=== PATIENT | male | born 1955 | race Caucasian/White ===

== ENCOUNTER 2019-07-17 14:10 | Outpatient (CLI) | payer BC, SELFPAY ==
--- NOTE | ~2019-07-17 | XR_ITS ---
EXAMINATION: XR shoulder RT min 2V DATE: 07/17/2019 14:44 INDICATION: Right shoulder pain. TECHNIQUE: 4 views of right shoulder were obtained. COMPARISON: None. FINDINGS: Bone alignment is normal. No fracture. There is mild osteoarthritis of glenohumeral joint a nd moderate osteoarthritis of acromioclavicular joint. IMPRESSION: 1. Polyarticular osteoarthritis. Reviewed, dictated and finalized at location A. RMATION TECHNOLOGY TEACHER
--- NOTE | ~2019-07-17 | XR_ITS ---
EXAMINATION: XR shoulder LT min 2V DATE: 07/17/2019 14:44 INDICATION: Left shoulder pain. TECHNIQUE: 4 views of left shoulder were obtained. COMPARISON: None. FINDINGS: Bone alignment is normal. No fracture. There is mild osteoarthritis of glenohumeral joint a nd acromioclavicular joint. IMPRESSION: 1. Mild polyarticular osteoarthritis. Reviewed, dictated and finalized at location A. ET ROW MARKER
[2019-07-17 14:21] LABS: Basophils Absolute Auto 0.04 K/mm3 (0.00-0.10); Basophils Percent Auto 0.4 % (0.0-1.0); Eosinophils Absolute Auto 0.12 K/mm3 (0.02-0.50); Eosinophils Percent Auto 1.1 % (1.0-6.0); Hematocrit 38.6 % (40.0-54.0); Hemoglobin 13.4 g/dL (14.0-18.0); Immature Granulocyte Absolute 0.04 K/mm3 (0.00-0.00); Immature Granulocyte Percent A 0.4 % (0.0-0.0); Lymphocytes Absolute Auto 1.32 K/mm3 (1.10-4.50); Lymphocytes Percent Auto 12.2 % (18.0-42.0); Mean Corpuscular HGB Conc 34.7 g/dL (32.0-36.0); Mean Corpuscular Hemoglobin 32.1 pg (27.0-31.0); Mean Corpuscular Volume 92.3 fL (78.0-102.0); Mean Platelet Volume 9.8 fl (8.7-11.0); Monocytes Absolute Auto 0.65 K/mm3 (0.10-0.90); Neutrophils Absolute Auto 8.6 K/mm3 (1.7-7.2); Neutrophils Percent Auto 79.9 % (50.0-70.0); Platelet Count Result 237 K/mm3 (150-420); Red Blood Count 4.18 M/mm3 (4.70-6.10); White Blood Count 10.8 K/mm3 (4.8-10.8)
[2019-07-17 15:29] LABS: Rheumatoid Factor Screen Negative (Negative)
[2019-07-17 15:35] LABS: Alanine Aminotransferase 49 U/L (16-63); Albumin Level 3.9 g/dL (3.4-5.0); Alkaline Phosphatase 131 U/L (46-116); Aspartate Amino Transferase 26 U/L (15-37); Bilirubin,Total 0.6 mg/dL (0.00-1.00); Blood Urea Nitrogen 15 mg/dL (7-18); Carbon Dioxide 27 mmol/L (21-32); Chloride 106 mmol/L (98-108); Estimated Glomerular Filt Rate 59; Glucose 85 mg/dL (70-99); Osmolality Calculated 297 mOsm/kg (285-295); Sodium 144 mmol/L (136-145); Uric Acid 5.8 mg/dL (3.5-7.2)
[2019-07-17 15:37] LABS: CRP < 0.2 mg/dL (0.0-0.9)
== END 2019-07-17 14:11 | disposition home or self-care (01) ==
LOC: CHSLAB 14:11
PROVIDERS: PCP Internal Medicine; Visit Provider Nurse Practitioner Family
DX: M25.519 Pain in unspecified shoulder (principal); M25.50 Pain in unspecified joint
CPT/HCPCS: 36415; 73030; 80053; 84550; 85025; 86038; 86140; 86430

== ENCOUNTER 2019-07-31 14:32 | Outpatient (CLI) | payer BC, SELFPAY ==
--- NOTE | ~2019-07-31 | XR_ITS ---
EXAMINATION:XR_CERV2-3V_CR DATE: 07/31/2019 14:57 INDICATION: Bilateral shoulder pain, no known injury TECHNIQUE: AP, lateral, lateral swimmers and odontoid views of the cervical spine are provided. COMPARISON: None FINDINGS: There is straightening of the cervical spine which can be positional or due to muscular spa sm. The odontoid is intact. No fracture is identified. The vertebral body heights are normal. There i s mild loss of intervertebral disc space height at C5-6 and C6-7. There is mild uncovertebral joint o steoarthritis at C5-6 and C6-7. Prevertebral soft tissues are normal. Calcified atherosclerosis is no haydee. IMPRESSION: 1. Mild cervical spondylosis without acute findings. Reviewed, dictated and finalized at location A. T CREW TECHNICIAN
== END 2019-07-31 14:33 | disposition home or self-care (01) ==
LOC: CHSIMG 14:34
PROVIDERS: PCP Internal Medicine; Visit Provider Nurse Practitioner Family
DX: M25.512 Pain in left shoulder (principal); M25.511 Pain in right shoulder
CPT/HCPCS: 72040

== ENCOUNTER 2019-08-06 07:45 | Outpatient (RCR) | payer BC, SELFPAY ==
--- NOTE | 2019-08-06 08:32 | PTOPEVAL ---
Thank you for referring this patient to [facility]. Please review, sign, date and return this plan of care [facility]. I agree with and certify that the following plan of care is medically necessary. Referring Physician Date Admitting Provider: Attending Provider: Chandler Diego MD Referring Provider: *PT Outpatient Evaluation Start: 08/06/19 07:48 Freq: Status: Active Protocol: Document 08/06/19 07:55 CARLITOS (Rec: 08/06/19 08:22 CARLITOS [id number]) Therapy Assessment Status Assessment Status Assessment Status Evaluation Outpatient Past Medical History Neurological History Hx Neurological Disorders No Significant History Cardiovascular History Hx Atrial Fibrillation Yes Musculoskeletal History Hx Musculoskeletal Disorders No Significant History Hematological History Hx Hematological Disorders No Significant History Endocrine History Hx Endocrine Disorders No Significant History HEENT History Hx HEENT Disorders No Significant History Integumentary History Hx Skin Disorders No Significant History Reproductive History Hx Reproductive Disorders No Significant History Psychosocial History Hx Psychiatric Disorders No Significant History Pain History History of Any Previous or Ongoing No Significant History Instance of Pain Anesthesia History Hx Anesthesia Reactions No Significant History Other History Hx Cancer Yes: esophaseal Evaluation Information Problem Diagnosis left frozen shoulder Onset 06/07/19 Subjective Information Pt. reports that about 2 Query Text:As Reported By Patient/ months ago he woke up in the Family morning and noted right shoulder pain and stiffness. He reports no improvement in regards to pain and mobility in the right shoulder. He reports that he has had injection yesterday, and notes slight improvement. He reports that he has not undergone MRI study. He did undergo xray which revealed some arthritis. He reports that his goal for therapy is to regain ney ROM. Prior Level of Function Activity Level (Last 3 Months) Hand Dominance Right Activity of Daily Living Ability Independent Indoor/Home Mobility Independent Community Mobility Independent Stairs Ability Independent Functional Cognition (Planning, Shopping Independent ,
--- NOTE | 2019-09-07 16:22 | PTOPEVAL ---
Thank you for referring Anil Samaniego to [facility]. Please review, sign, date and return this plan of care [facility]. I agree with and certify that the following plan of care is medically necessary. Referring Physician Date Admitting Provider: Attending Provider: Chandler Diego MD Referring Provider: *PT Outpatient Evaluation Start: 08/06/19 07:48 Freq: Status: Active Protocol: Document 09/04/19 10:00 CARLITOS (Rec: 09/07/19 16:21 ENRIQUE [id number]) Therapy Assessment Status Assessment Status Assessment Status Re-evaluation Outpatient Past Medical History Neurological History Hx Neurological Disorders No Significant History Cardiovascular History Hx Atrial Fibrillation Yes Musculoskeletal History Hx Musculoskeletal Disorders No Significant History Hematological History Hx Hematological Disorders No Significant History Endocrine History Hx Endocrine Disorders No Significant History HEENT History Hx HEENT Disorders No Significant History Integumentary History Hx Skin Disorders No Significant History Reproductive History Hx Reproductive Disorders No Significant History Psychosocial History Hx Psychiatric Disorders No Significant History Pain History History of Any Previous or Ongoing No Significant History Instance of Pain Anesthesia History Hx Anesthesia Reactions No Significant History Other History Hx Cancer Yes: esophaseal Evaluation Information Problem Diagnosis left frozen shoulder Onset 06/07/19 Subjective Information Pt. reports that he is still Query Text:As Reported By Patient/ limited due to pain. He Family states that despite the pain is movement has signficantly improved. He reports that he still would like to improve strength and mobility, and continue to decrease pain. Pain Assessment Pain Scale Pain Scale Used Numeric (1 - 10) Self Report Pain Assessment Left Shoulder(s) Reported Pain Level 5 Pain Score Pain Score 5: Self Report Upper Extremity Range of Motion General Upper Extremity Range of Motion Gross Upper Extremity Range of Motion left shoulder flexion AROM 120 Comments degrees, left shoulder ER AROM 55 degrees, left shoulder IR AROM 45 degrees Upper Extremity Muscle Strength Testing General Upper Extremity Strength Gross Upper Extremity Strength Comments left shoulder flexion 4/5, left shoulder ER 4/5, left shoulder IR 5/5 PT Clinical Summary Clinical Summary Protocol
== END 2019-09-24 10:52 | disposition home or self-care (01) ==
LOC: CHSPT 07:45
PROVIDERS: PCP Internal Medicine; Visit Provider Internal Medicine
DX: M75.02 Adhesive capsulitis of left shoulder (principal)
CPT/HCPCS: 97014; 97110; 97140; 97161; G0283

== ENCOUNTER 2019-08-26 09:23 | Outpatient (CLI) | payer BC, SELFPAY ==
[2019-08-26 09:34] LABS: Basophils Absolute Auto 0.03 K/mm3 (0.00-0.10); Basophils Percent Auto 0.4 % (0.0-1.0); Eosinophils Percent Auto 1.4 % (1.0-6.0); Hematocrit 41.2 % (40.0-54.0); Hemoglobin 14.3 g/dL (14.0-18.0); Immature Granulocyte Absolute 0.02 K/mm3 (0.00-0.00); Immature Granulocyte Percent A 0.3 % (0.0-0.0); Lymphocytes Absolute Auto 1.02 K/mm3 (1.10-4.50); Lymphocytes Percent Auto 14.7 % (18.0-42.0); Mean Corpuscular HGB Conc 34.7 g/dL (32.0-36.0); Mean Corpuscular Hemoglobin 32.5 pg (27.0-31.0); Mean Corpuscular Volume 93.6 fL (78.0-102.0); Mean Platelet Volume 10.2 fl (8.7-11.0); Monocytes Absolute Auto 0.21 K/mm3 (0.10-0.90); Neutrophils Absolute Auto 5.6 K/mm3 (1.7-7.2); Neutrophils Percent Auto 80.2 % (50.0-70.0); Platelet Count Result 172 K/mm3 (150-420); Red Cell Distribution Width 12.7 % (11.6-14.4); White Blood Count 6.9 K/mm3 (4.8-10.8)
[2019-08-26 11:43] LABS: Alanine Aminotransferase 53 U/L (16-63); Albumin Level 3.9 g/dL (3.4-5.0); Alkaline Phosphatase 101 U/L (46-116); Anion Gap 11.6 mmol/L (7-16); Aspartate Amino Transferase 30 U/L (15-37); Bilirubin,Total 0.7 mg/dL (0.00-1.00); Blood Urea Nitrogen 21 mg/dL (7-18); Calcium 9.2 mg/dL (8.5-10.1); Carbon Dioxide 29 mmol/L (21-32); Chloride 106 mmol/L (98-108); Estimated Glomerular Filt Rate > 60; Glucose 170 mg/dL (70-99); Lactate Dehydrogenase 110 U/L (85-227); Osmolality Calculated 303 mOsm/kg (285-295); Potassium 3.6 mmol/L (3.5-5.1); Sodium 143 mmol/L (136-145); Total Protein 6.8 g/dL (6.4-8.2)
== END 2019-08-26 09:24 | disposition home or self-care (01) ==
LOC: CHSLAB 09:26
PROVIDERS: PCP Internal Medicine; Visit Provider Internal Medicine
DX: C15.5 Malignant neoplasm of lower third of esophagus (principal)
CPT/HCPCS: 36415; 80053; 83615; 85025

== ENCOUNTER 2019-10-23 12:03 | Outpatient (CLI) | payer BC, SELFPAY ==
[2019-10-23 12:18] LABS: Basophils Absolute Auto 0.04 K/mm3 (0.00-0.10); Basophils Percent Auto 0.5 % (0.0-1.0); Eosinophils Absolute Auto 0.05 K/mm3 (0.02-0.50); Eosinophils Percent Auto 0.6 % (1.0-6.0); Hematocrit 43.6 % (40.0-54.0); Hemoglobin 15.4 g/dL (14.0-18.0); Immature Granulocyte Absolute 0.03 K/mm3 (0.00-0.00); Immature Granulocyte Percent A 0.4 % (0.0-0.0); Lymphocytes Absolute Auto 0.96 K/mm3 (1.10-4.50); Lymphocytes Percent Auto 12.1 % (18.0-42.0); Mean Corpuscular HGB Conc 35.3 g/dL (32.0-36.0); Mean Corpuscular Hemoglobin 31.4 pg (27.0-31.0); Mean Platelet Volume 10.3 fl (8.7-11.0); Monocytes Absolute Auto 0.48 K/mm3 (0.10-0.90); Neutrophils Absolute Auto 6.4 K/mm3 (1.7-7.2); Neutrophils Percent Auto 80.4 % (50.0-70.0); Platelet Count Result 185 K/mm3 (150-420); Red Cell Distribution Width 12.1 % (11.6-14.4); White Blood Count 7.9 K/mm3 (4.8-10.8)
[2019-10-23 13:35] LABS: Alanine Aminotransferase 52 U/L (16-63); Albumin Level 4.2 g/dL (3.4-5.0); Alkaline Phosphatase 86 U/L (46-116); Anion Gap 17.1 mmol/L (7-16); Aspartate Amino Transferase 32 U/L (15-37); Bilirubin,Total 0.7 mg/dL (0.00-1.00); Blood Urea Nitrogen 22 mg/dL (7-18); Calcium 9.7 mg/dL (8.5-10.1); Carbon Dioxide 25 mmol/L (21-32); Chloride 106 mmol/L (98-108); Estimated Glomerular Filt Rate 54; Glucose 119 mg/dL (70-99); Lactate Dehydrogenase 161 U/L (85-227); Osmolality Calculated 302 mOsm/kg (285-295); Potassium 4.1 mmol/L (3.5-5.1); Sodium 144 mmol/L (136-145); Total Protein 6.9 g/dL (6.4-8.2)
== END 2019-10-23 12:04 | disposition home or self-care (01) ==
LOC: CHSLAB 12:05
PROVIDERS: PCP Internal Medicine; Visit Provider Internal Medicine
DX: C15.5 Malignant neoplasm of lower third of esophagus (principal)
CPT/HCPCS: 36415; 80053; 83615; 85025

== ENCOUNTER 2021-10-09 13:52 | Outpatient (CLI) | payer MEDICARE, SELFPAY ==
--- NOTE | 2021-10-09 14:20 | ECG_ITS ---
Measurements Intervals [place] Rate: 52 P: 61 DC: 168 QRS: 51 QRSD: 100 T: 35 QT: 467 QTc: 436 Interpretive Statements SINUS BRADYCARDIA POSSIBLE LEFT ATRIAL ENLARGEMENT INCOMPLETE RIGHT BUNDLE BRANCH BLOCK T WAVE ABNORMALITY IN ANTERIOR LEADS- CONSIDER ISCHEMIA ABNORMAL ECG Electronically Signed On 10-09-2021 14:29:50 CDT by Basim Cowart D.O.
[2021-10-09 14:50] LABS: Add Urine Microscopic? YES; Appearance Urine Clear (Clear); Bilirubin Urine Negative (Negative); Blood Urine Negative (Negative); Color Urine Light Yellow (Yellow); Glucose Urine UA Negative (Negative); Ketones Urine Negative (Negative); Leukocyte Esterase Ur 1+ (Negative); Nitrate Urine Negative (Negative); Protein Urine Negative (Negative); Urobilinogen Urine 0.2 mg/dL (0.2-1.0)
[2021-10-09 15:25] LABS: Bacteria Urine Trace /hpf; RBC Urine None seen /hpf (0-2); Squamous Epithelial Cell Urine Rare /hpf (Few); WBC Urine 0-3 /hpf (0-3)
[2021-10-09 15:32] LABS: Alanine Aminotransferase 25 U/L (16-63); Albumin Level 3.3 g/dL (3.4-5.0); Alkaline Phosphatase 74 U/L (46-116); Anion Gap 9 mmol/L (8-16); Aspartate Amino Transferase 23 U/L (15-37); Bilirubin,Total 0.7 mg/dL (0.00-1.00); Blood Urea Nitrogen 9 mg/dL (7-18); Calcium 8.8 mg/dL (8.5-10.1); Carbon Dioxide 25 mmol/L (21-32); Chloride 105 mmol/L (98-108); Estimated Glomerular Filt Rate > 60; Glucose 98 mg/dL (70-99); NT Pro B Type Natriuretic Pept 369 pg/mL (0-125); Osmolality Calculated 286 mOsm/kg (285-295); Sodium 139 mmol/L (136-145); Thyroid Stimulating Hormone 2.09 uIU/mL (0.36-3.74); Total Protein 7.1 g/dL (6.4-8.2)
[2021-10-09 16:09] LABS: Basophils Absolute Auto 0.03 K/mm3 (0.00-0.10); Basophils Percent Auto 0.5 % (0.0-1.0); Eosinophils Absolute Auto 0.15 K/mm3 (0.02-0.50); Eosinophils Percent Auto 2.4 % (1.0-6.0); Hematocrit 45.3 % (40.0-54.0); Hemoglobin 15.1 g/dL (14.0-18.0); Immature Granulocyte Absolute 0.01 K/mm3 (0.00-0.00); Immature Granulocyte Percent A 0.2 % (0.0-0.0); Lymphocytes Absolute Auto 1.21 K/mm3 (1.10-4.50); Lymphocytes Percent Auto 19.3 % (18.0-42.0); Mean Corpuscular HGB Conc 33.3 g/dL (32.0-36.0); Mean Corpuscular Volume 99.1 fL (78.0-102.0); Mean Platelet Volume 11.6 fl (8.7-11.0); Monocytes Absolute Auto 0.41 K/mm3 (0.10-0.90); Monocytes Percent Auto 6.5 % (2.0-11.0); Neutrophils Absolute Auto 4.5 K/mm3 (1.7-7.2); Neutrophils Percent Auto 71.1 % (50.0-70.0); Platelet Count Result 106 K/mm3 (150-420); Red Blood Count 4.57 M/mm3 (4.70-6.10); Red Cell Distribution Width 13.6 % (11.6-14.4); White Blood Count 6.3 K/mm3 (4.8-10.8)
== END 2021-10-09 13:53 | disposition home or self-care (01) ==
LOC: CHSLAB 13:57
PROVIDERS: PCP Internal Medicine; Visit Provider Internal Medicine
DX: R42 Dizziness and giddiness (principal); C15.9 Malignant neoplasm of esophagus, unspecified; R06.00 Dyspnea, unspecified
CPT/HCPCS: 36415; 80053; 81001; 83880; 84443; 85025; 93005

== ENCOUNTER 2021-10-17 09:37 | Outpatient (CLI) | payer MEDICARE, SELFPAY ==
--- NOTE | ~2021-10-17 | MR_ITS ---
EXAMINATION: MR brain/brain stem wo con DATE: 10/17/2021 10:45 INDICATION: Dizziness. TECHNIQUE: Magnetic resonance imaging (MRI) of the brain and brainstem was performed without intraven ous contrast. COMPARISON: Head CT 07/12/2018 FINDINGS: There are scattered areas of nonspecific increased T2-weighted signal intensity in the cere bral white matter, which is within normal limits for the patient's age. There is no intracranial hemo rrhage, acute infarction, or abnormal intracranial mass lesion. The ventricles are normal in size. Th ere is mild mucosal thickening in the paranasal sinuses. There are small bilateral mastoid effusions. There is a dystrophic calcification of right ocular globe. IMPRESSION: 1. Normal aging brain. Reviewed, dictated and finalized at location B. IMPRESSION: 1. Normal aging brain.
== END 2021-10-17 09:38 | disposition home or self-care (01) ==
LOC: CHSIMG 09:40
PROVIDERS: PCP Internal Medicine; Visit Provider Internal Medicine
DX: R42 Dizziness and giddiness (principal); C15.9 Malignant neoplasm of esophagus, unspecified; R06.00 Dyspnea, unspecified
CPT/HCPCS: 70551

== ENCOUNTER 2021-10-20 12:15 | Outpatient (CLI) | payer MEDICARE, SELFPAY ==
--- NOTE | 2021-10-20 01:00 | ECHO_ITS ---
Patient Info Name: Anil Samaniego Age: 66 years : 1955 Gender: Male Ht: 73 in Wt: 222 lbs BSA: 2.30 m2 HR: 91 bpm BP: 136 / 87 mmHg Heart Rhythm: Sinus Rhythm Technical Quality: Fair Exam Date: 10/20/2021 12:15 PM Exam Location: [facility] Patient Status: Outpatient Admit Date: 10/20/2021 Staff Ordering Physician: Chandler Diego MD Cloth Winder: Alley Jurado RDCS Attending Provider: Chandler Diego MD Exam Type: CA echo doppler color flow Study Info Indications - ABN EKG/ELEVATED BNP, OSTHOSTIC HYPERTENSION Complete two-dimensional, color flow and Doppler transthoracic echocardiogram is performed. Summary 1. Complete two-dimensional, color flow and Doppler transthoracic echocardiogram is performed. 2. Left ventricular chamber dimension is normal. 3. Left ventricular systolic function is normal, estimated at 60-65%. 4. The left ventricular diastolic function is grade I diastolic dysfunction. 5. E/e' 10 is mildly elevated. 6. There is mild aortic valve sclerosis. 7. No pulmonary hypertension, estimated pulmonary arterial systolic pressure is 29 mmHg. Left Ventricle E/e' 10 is mildly elevated. Left ventricular chamber dimension is normal. Left ventricular systolic function is normal, estimated at 60-65%. The left ventricular diastolic function is grade I diastolic dysfunction. Right Ventricle Right ventricular chamber dimension is normal. Right ventricular systolic function is normal. Left Atria Left atrial chamber dimension is normal. Right Atria Right atrial chamber dimension is normal. Aortic Valve The aortic valve is trileaflet. There is mild aortic valve sclerosis. There is no aortic valve stenosis. There is no aortic valve regurgitation. Pulmonic Valve There is no pulmonic regurgitation. Mitral Valve There is no mitral valve stenosis. There is no mitral valve regurgitation. Tricuspid Valve There is no tricuspid valve regurgitation. No pulmonary hypertension, estimated pulmonary arterial systolic pressure is 29 mmHg. Pericardium/Pleural There is no pericardial effusion. Inferior Vena Cava Normal inferior vena cava with >50% collapse upon inspiration consistent with normal right atrial pressure, 5 mmHg. Aorta The aortic root size at the sinus of Valsalva is normal. Left Ventricular Outflow Tract Name Value Normal LVOT 2D LVOT Diameter 2.0 cm LVOT Doppler LVOT Peak Velocity 118 cm/s LVOT Peak Gradient 6 mmHg LVOT Mean Gradient 3 mmHg LVOT VTI 19 cm LVOT VTI/AV VTI Ratio 0.7 LVOT Stroke Volume 60 ml Mitral Valve Name Value Normal MV Doppler MV Decel [place] 261 cm/s2 MV PHT
== END 2021-10-20 12:16 | disposition home or self-care (01) ==
LOC: CHSIMG 12:17
PROVIDERS: PCP Internal Medicine; Visit Provider Internal Medicine
DX: R94.31 Abnormal electrocardiogram [ECG] [EKG] (principal); I95.1 Orthostatic hypotension; R79.89 Other specified abnormal findings of blood chemistry
CPT/HCPCS: 93306

== ENCOUNTER 2021-10-24 14:10 | Emergency (ER) | payer MEDICARE, SELFPAY ==
--- NOTE | ~2021-10-24 | CT_ITS ---
EXAMINATION: CTA chest PE protocol DATE: 10/24/2021 15:35 INDICATION: Chest elevated D-Dimer. Central chest pain with SOB TECHNIQUE: Computed tomography angiography (CTA) of the chest was performed with 100 mL Omnipaque-350 intravenous contrast timed to evaluate the pulmonary arteries. Coronal maximum intensity projection 3D-reconstructions were created by the technologist. The dose-length product (DLP) was 805.35 mGy-cm. Automated exposure control and iterative reconstruction technique were employed. COMPARISON: 04/28/2019. FINDINGS: Study quality: Adequate. Pulmonary arteries: No pulmonary emboli detected. Thoracic aorta: Mild calcification. No significant dilation. Lung parenchyma and airways: Bibasilar atelectasis/scar. 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 Thoracic inlet, axillae and chest wall: Unremarkable. Mediastinum: Esophagectomy with gastric pull-through. No lymphadenopathy or mass.. Heart and pericardium: Small volume pericardial effusion. Coronary artery calcifications: Moderate. Pleura: Unremarkable. Upper abdomen: No significant finding. Bones: No acute osseous finding. IMPRESSION: No CT evidence of acute pulmonary embolus. Small-volume pericardial effusion. Reviewed, dictated and finalized at location K.
--- NOTE | ~2021-10-24 | XR_ITS ---
EXAMINATION: XR chest 2V DATE: 10/24/2021 14:43 INDICATION: 5 days of chest pain TECHNIQUE: frontal and lateral views of the chest were obtained. COMPARISON: Chest radiograph dated 07/11/[address] dated 07/13/2018 FINDINGS: Mild streaky bibasilar opacities. No subtle blunting at the costophrenic angles and posterior sulci s uggesting very small bilateral pleural effusions. No pneumothorax. The cardiomediastinal silhouette i s normal. Mild thoracic spondylosis. IMPRESSION: 1. Mild streaky bibasilar opacities and favor atelectasis over mild pulmonary edema or pneumonia. 2. Possible very small bilateral pleural effusions. Reviewed, dictated and finalized at location B. IMPRESSION: 1. Mild streaky bibasilar opacities and favor atelectasis over mild pulmonary e rich or pneumonia. 2. Possible very small bilateral pleural effusions.
--- NOTE | 2021-10-24 14:18 | ECG_ITS ---
Measurements Intervals [place] Rate: 61 P: 56 NM: 162 QRS: -6 QRSD: 97 T: -11 QT: 417 QTc: 422 Interpretive Statements SINUS RHYTHM ATRIAL PREMATURE COMPLEXES RIGHT BUNDLE BRANCH BLOCK BASELINE ARTIFACT- II, III, AVL, AVF, V3, V5 ABNORMAL ECG Electronically Signed On 10-24-2021 14:45:54 CDT by Basim Cowart D.O.
--- NOTE | 2021-10-24 14:18 | ED.CHESTPAIN ---
HPI - Chest Pain General Chief Complaint: Chest Pain Stated Complaint: Chest pain/SOB Time Seen by Provider: 10/24/21 14:18 Source: patient and RN notes reviewed Mode of arrival: ambulatory Limitations: no limitations History of Present Illness HPI narrative: patient was at his doctor's office for follow-up of dizziness. His doctor had sent him to diversity intern for an echocardiogram an EKG. EKG showed some slight abnormalities with some PVCs. He was at the doctor's office today mentioned that he had been having chest pain since 01/30 last night and had a similar episode last Saturday all day. He said his chest pain since last night has been constant sometimes improving. He has a history of esophageal cancer and had an esophagectomy. Otherwise no other risk factors other than being a prior smoker. MD complaint: chest pain Onset (ago): day(s) (2) Timing of current episode: episodic and constant (since 8:30 last PM) Prior episodes: Yes Onset: during rest Pain location: substernal Pain radiation: none Severity: severe Pain scale (0-10): 8 Quality: heaviness (tightness) Relieving factors: nothing Exacerbating factors: nothing Associated symptoms: nausea Treatment prior to arrival: none Risk Factors Pulmonary embolism risk factors: malignancy Related Data Home Medications Medication Instructions Recorded Confirmed omeprazole 20 mg capsule,delayed 20 mg PO BID 05/30/19 10/24/21 release Allergies Allergy/AdvReac Type Severity Reaction Status Date / Time No Known Allergies Allergy Unverified 10/24/21 14:23 [facility] Past Medical History Medical History Afib DVT (deep venous thrombosis) Esophageal cancer Surgical History Surgical History (Updated 10/24/21 @ 14:35 by Rusty Rosas MD) H/O esophagectomy Family History Family History (Updated 05/30/19 @ 16:16 by Molly Magallon RN) Mother Heart disease Social History Social History Smoking status: Former smoker Tobacco type: cigarettes Second hand tobacco smoke exposure: No Smoking end date: 04/08/96 Alcohol intake: former Substance use type: does not use Gender identity (if verbalized by the patient): Male Spiritual care concerns: No Agree to blood products: Yes Exam Const: General: healthy appearing, no acute distress and alert; No diaphoretic Nutritional Appearance: well nourished Orientation/consciousness: patient oriented x3 Limitations: no limitations HENMT: Head: normal to inspection Ears: external ears normal Eyes: Conjunctivae: conjunctivae normal Pupils: Equal, round and reactive pupils present EOM: EOMs intact bilaterally Neck: Neck: normal visual inspection Resp: Effort & Inspection: normal respiratory effort Auscultation: clear to auscultation bilaterally Cardio: Rate: regular rate Rhythm: abnormal rhythm with ectopic beats GI: GI Palp: Yes Soft to palpation and No Tenderness to palpation present (GI) Auscultation: normal bowel sounds Back/Spine/Pelvis: Cervical Spine: cervical ROM normal Thoracic/Lumbar Spine: thoraco-lumbar ROM normal Skin: General skin exam: normal color Rashes: no rashes Wounds: no wounds Neuro: General: patient oriented x3, moves all extremities, no focal motor deficits and CN's II-XI intact bilaterally Speech: normal speech Gait exam (Neuro): Normal gait present Extrem: General: normal to inspection and no clubbing, cyanosis or edema Psych: Mental Status: mental status grossly normal Affect: normal affect Attitude: cooperative Course Course Emergency Course: patient significantly improved following GI cocktail. He is advised to call his rn ortho for further treatment. Heart score equals 2. Vital Signs Vital signs: Vital Signs Temperature 37.0 C 10/24/21 14:20 Pulse Rate 69 10/24/21 14:20 Respiratory Rate 22 H 10/24/21 14:20 Blood Pressure
[2021-10-24 14:20] VITALS: BP 131/94; PULSE 69; RESP 22; TEMP 37; O2SAT 98
[2021-10-24 14:44] LABS: Basophils Absolute Auto 0.03 K/mm3 (0.00-0.10); Basophils Percent Auto 0.4 % (0.0-1.0); Eosinophils Absolute Auto 0.14 K/mm3 (0.02-0.50); Eosinophils Percent Auto 1.9 % (1.0-6.0); Hematocrit 42.1 % (40.0-54.0); Hemoglobin 13.7 g/dL (14.0-18.0); Immature Granulocyte Absolute 0.02 K/mm3 (0.00-0.00); Immature Granulocyte Percent A 0.3 % (0.0-0.0); Lymphocytes Absolute Auto 1.12 K/mm3 (1.10-4.50); Lymphocytes Percent Auto 14.9 % (18.0-42.0); Mean Corpuscular HGB Conc 32.5 g/dL (32.0-36.0); Mean Corpuscular Hemoglobin 33.4 pg (27.0-31.0); Mean Corpuscular Volume 102.7 fL (78.0-102.0); Mean Platelet Volume 10.1 fl (8.7-11.0); Monocytes Absolute Auto 0.91 K/mm3 (0.10-0.90); Monocytes Percent Auto 12.1 % (2.0-11.0); Neutrophils Absolute Auto 5.3 K/mm3 (1.7-7.2); Neutrophils Percent Auto 70.4 % (50.0-70.0); Platelet Count Result 184 K/mm3 (150-420); Red Cell Distribution Width 13.4 % (11.6-14.4); White Blood Count 7.5 K/mm3 (4.8-10.8)
[2021-10-24] MEDS: ASPIRIN 81 MG CHEWABLE TABLET 324 MG PO (14:47)
[2021-10-24 15:00] LABS: Prothrombin Time 10.9 Seconds (9.50-12.10)
[2021-10-24 15:02] LABS: D Dimer 0.69 mg/L (0.19-0.50)
[2021-10-24 15:05] LABS: Alanine Aminotransferase 33 U/L (16-63); Alkaline Phosphatase 80 U/L (46-116); Anion Gap 7 mmol/L (8-16); Aspartate Amino Transferase 34 U/L (15-37); Bilirubin,Total 0.9 mg/dL (0.00-1.00); Blood Urea Nitrogen 11 mg/dL (7-18); Calcium 8.8 mg/dL (8.5-10.1); Carbon Dioxide 29 mmol/L (21-32); Chloride 102 mmol/L (98-108); Estimated Glomerular Filt Rate > 60; Glucose 109 mg/dL (70-99); NT Pro B Type Natriuretic Pept 470 pg/mL (0-125); Osmolality Calculated 286 mOsm/kg (285-295); Potassium 4.2 mmol/L (3.5-5.1); Sodium 138 mmol/L (136-145); Total Protein 6.9 g/dL (6.4-8.2); Troponin I 5.1 ng/L (0.00-60.4)
[2021-10-24 15:31] VITALS: O2SAT 98
[2021-10-24] MEDS: MAG HYDROX/ALUMINUM HYD/SIMETH 30 ML, PHENobarb/HYOSCY/ATROPINE/SCOP 32.4 MG, LIDOCAINE... PO (16:22)
[2021-10-24 17:21] VITALS: BP 129/80; PULSE 64; RESP 16; TEMP 36.9; O2SAT 100
== END 2021-10-24 17:23 | disposition home or self-care (01) ==
PROVIDERS: Emergency Provider Emergency Medicine; PCP Internal Medicine
DX: K20.90 Esophagitis, unspecified without bleeding (principal); R07.89 Other chest pain; I48.20 Chronic atrial fibrillation, unspecified; Z86.718 Personal history of other venous thrombosis and embolism; Z87.891 Personal history of nicotine dependence; Z90.49 Acquired absence of other specified parts of digestive tract; Z85.01 Personal history of malignant neoplasm of esophagus
CPT/HCPCS: 36415; 71046; 71275; 80053; 83880; 84484; 85025; 85380; 85610; 93005; 99284; A9270; Q9967

== ENCOUNTER 2022-02-01 20:48 | Emergency (ER) | payer MEDICARE, SELFPAY ==
[2022-02-01 21:01] VITALS: BP 118/60; PULSE 60; RESP 20; TEMP 36.6; O2SAT 99
--- NOTE | 2022-02-01 21:07 | ED.EYEPROB ---
HPI - Eye Problem General Chief complaint: Eye Problems Stated complaint: can't see/R eye hurts Time Seen by Provider: 02/01/22 20:49 Source: patient Mode of arrival: ambulatory Limitations: no limitations History of Present Illness HPI Narrative: This is a 66-year-old gentleman that wears contacts and apparently had trouble with his right contact and was placing and removing and causing a ventrally pain and inflammation and foreign body sensation in the right eye with some blurry vision with some pain about a 6/10 with tearing. chief complaint: eye pain, eye redness, eye injury and vision change Onset (ago): hour(s) Onset description: sudden Duration: constant Location: right eye Eye Symptoms: redness, pain and foreign body sensation Place: home Mechanism: direct trauma Severity: moderate Related Data Patient tetanus UTD: Yes Home Medications Medication Instructions Recorded Confirmed omeprazole 20 mg capsule,delayed 20 mg PO BID 05/30/19 10/24/21 release Allergies Allergy/AdvReac Type Severity Reaction Status Date / Time No Known Allergies Allergy Unverified 10/24/21 14:23 Review of Systems Review of Systems: All systems reviewed & are unremarkable except as noted in HPI and below PMFSH Past Medical History Medical History Afib DVT (deep venous thrombosis) Esophageal cancer Surgical History Surgical History H/O esophagectomy Family History Family History Mother Heart disease Social History Social History Smoking status: Former smoker Tobacco type: cigarettes Second hand tobacco smoke exposure: No Smoking end date: 04/08/96 Alcohol intake: former Substance use type: does not use Gender identity (if verbalized by the patient): Male Spiritual care concerns: No Agree to blood products: Yes Exam Const: General: healthy appearing Nutritional Appearance: well nourished HENMT: Head: normal to inspection Face and sinus: normal facial exam Eyes: Direct Ophthalmoscopy: photophobia Other: Redness and erythema of the right eye and conjunctiva Neck: Neck: normal visual inspection, no lymphadenopathy and no meningeal signs Chest: Chest palpation & inspection: normal inspection of the chest Resp: Effort & Inspection: normal respiratory effort Auscultation: clear to auscultation bilaterally Cardio: Rate: regular rate Rhythm: regular rhythm GI: Auscultation: normal bowel sounds Skin: General skin exam: normal color Rashes: no rashes Wounds: no wounds Neuro: General: patient oriented x3 Extrem: General: normal to inspection Psych: Mental Status: mental status grossly normal Course Course Emergency Course: tetracaine was used to numb the right eye and fluorescein stain used to stain the eye and revealed a corneal abrasion at about the 12 o'clock position right above his right pupil, Maxitrol eyedrops for were instilled into the right eye patient was informed not to wear contact on the right eye, pain medication was given. Vital Signs Vital signs: Vital Signs Temperature 36.6 C 02/01/22 21:01 Pulse Rate 60 02/01/22 21:01 Respiratory Rate 20 02/01/22 21:01 Blood Pressure 118/60 02/01/22 21:01 Pulse Oximetry 99 02/01/22 21:01 Oxygen Delivery Room Air 02/01/22 21:01 Temperature 36.6 C 02/01/22 21:01 Pulse Rate 60 02/01/22 21:01 Respiratory Rate 20 02/01/22 21:01 Blood Pressure 118/60 02/01/22 21:01 Pulse Oximetry 99 02/01/22 21:01 Oxygen Delivery Room Air 02/01/22 21:01 Procedures FB Removal Eye Foreign Body #1: Foreign Body Removal Date: 02/01/22 Foreign Body Removal Time: 21:12 Time Out performed: Yes Location: eye (R) Topical anesthetic used: tetr
[2022-02-01] MEDS: oxyCODONE/ACETAMINOPHEN (*CRX) 5-325 MG TABLET 1 TABLET PO (21:26)
[2022-02-01] MEDS: DACRIOSE EYE IRRIGATION 118 ML BOTTLE 30 ML RIGHT EYE (21:27)
[2022-02-01] MEDS: NEOMYCIN/POLYMYXIN/DEXAMETH OP SUSP 5 ML BTL 1 DROP RIGHT EYE (21:27)
[2022-02-01] MEDS: TETRACAINE HCL 0.5% OPHTH SOLN 4 ML BTL 1 DROP AFFCTD EYE (21:28)
[2022-02-01] MEDS: FLUORESCEIN SOD 1 MG/STRIP RIGHT EYE (21:28)
[2022-02-01 21:38] VITALS: BP 120/66; PULSE 66; RESP 16; TEMP 36.6; O2SAT 98
--- NOTE | 2022-02-01 21:38 | PC.NURSE ---
md washed eye out with dacriose & applied the tetracaine
== END 2022-02-01 21:49 | disposition home or self-care (01) ==
PROVIDERS: Emergency Provider Emergency Medicine; PCP Internal Medicine
DX: S05.01XA Injury of conjunctiva and corneal abrasion without foreign body, right eye, initial encounter (principal)
CPT/HCPCS: 99283; A9270

== ENCOUNTER 2025-04-02 00:20 | Day surgery (SDC) | payer MEDICARE, SELFPAY ==
[2025-03-24 08:46] VITALS: BMI 29.9
--- OUTSIDE RECORDS SUMMARY | 2025-04-02 00:22 | XMS_ITS ---
Author Organization [facility] Address [address] [place] [address] Phone Care Team Providers Care Main Line Station Engineer Name Role Phone Rusty Mayen MD Unavailable [phone] Sony Collazo MD Unavailable [phone] Chandler Diego MD Primary Care Provider [phone] Active Problems Problem Noted Date Diagnosed Date Macrocytic 12/12/2022 Esophageal dysphagia 02/01/2020 06/12/2023 Malignant neoplasm of lower third of esophagus 0 08/28/2018 Current Treatment and Therapy Plans SUPPORT - HYDRATION WITHOUT ADDITIVES - [facility]* Plan Start Date:06/13/2022 Plan Provider:Rusty Mayen MD Linked Problems Malignant neoplasm of lower third of esophagus Treatment Medications No medications scheduled. Past Treatment and Therapy Plans ONCOLOGY SUPPORTIVE CARE Plan Name Start Date Discontinue Date Treatment Medications Discontinue Reason Plan Provider Cycles SUPPORT - HYDRATION NO ADDITIVES - [facility]I 9 05/31/2020 No medications scheduled. Plan Clean Up Rusty Mayen MD 1 of 1 cycle started ONCOLOGY TREATMENT Plan Name Start Date Discontinue Date Treatment Medications Discontinue Reason Plan Provider Cycles ESOPHAGEAL CARBOPLATIN TAXOL XRT WEEKLY - [facility] 09/01/2018 07/28/2020 CARBOplatin (PARAPLATIN) chemo infusion (by AUC)PACLitaxel (TAXOL) chemo infusion Plan Clean Up Rusty Mayen MD 1 of 1 cycle started Lifetime Dose Tracking * Chemical Lifetime Dose Automatic Entry Manual Entr y Carboplatin 757.664 mg/m2 (1,749 mg) 757.664 mg/m2 (1 ,749 mg) 0 mg/m2 (0 mg)
--- OUTSIDE RECORDS SUMMARY | 2025-04-02 00:22 | XMS_ITS | Clinical Summary ---
Author Organization [facility] Address [address] [place] [address] Phone Care Team Providers Care Coremaker Floor Name Role Phone Rusty Mayen MD Unavailable [phone] Sony Collazo MD Unavailable [phone] Chandler Diego MD Primary Care Provider [phone] Allergies No known active allergies Medications omeprazole (PRILOSEC) 20 MG Tablet Delayed ResponseIndicati ons:Malignant neoplasm of lower third of esophagus,Esopha geal dysphagia,Macroc ytic Take 1 Tablet by mouth 2 times daily. 180 Tablet 3 02/03/2025 Active Active Problems Problem Noted Date Diagnosed Date Macrocytic 12/12/2022 Esophageal dysphagia 02/01/2020 06/12/2023 Malignant neoplasm of lower third of esophagus 0 08/28/2018 Encounters Date Type Department Care Team Description 02/10/2025 10:30 AM CDT Office Visit [facility] [address] [phone] Montse Gillis APRN, OMI History of esophageal cancer (Primary Dx); Dysphagia, unspecified type 02/10/2025 9:05 AM CDT Lab [facility] [address] [address] Lab, [facility] [place] Malignant neoplasm of lower third of esophagus (HCC) 02/10/2025 Travel 02/03/2025 Refill [facility] [address] [phone] Rusty Mayen MD Medication Refill from Last 3 Months Family History Medical History Relation Name Comments Alzheimer's Disease Father Cancer Maternal Aunt Lung Cancer Maternal Aunt Alzheimer's Disease Mother Relation Name Status Comments Father Maternal Aunt Mother Social History Tobacco Use Types Packs/Day Years Used Date Smoking Tobacco: Former Cigarettes 2 Q uit: 1994 Smokeless Tobacco: Never Tobacco Cessation:Counseling Given: Not Answered Alcohol Use Standard Drinks/Week Comments Not Currently 0 (1 standard drink = 0.6 oz pur e alcohol) PHQ-2 Answer Date Recorded Total Score - Questions 1-9 0 11/01 Sex and Gender Information Value Date Recorded Sex Assigned at Not on file Legal Sex Male 8:02 AM CDT Gender Identity Not on file Sexual Orientation Not on file Last Filed Vital Signs Vital Sign Reading Time Taken Comments Blood Pressure 130/92 02/10/2025 10:29 AM CDT Pulse 80 02/10/2025 10:29 AM CDT Temperature 36.5 C (97.7 F) 02/10/2025 10:29 AM CDT Respiratory Rate 18 02/10/2025 10:2 9 AM CDT Oxygen Saturation 100% 02/10/2025 10: 29 AM CDT Inhaled Oxygen Concentration - - Weight 101.7 kg (224 lb 1.6 oz) 025 10:29 AM CDT Height 185.4 cm (6' 1) 02/10/2025 10:2 9 AM CDT Body Mass Index 29.57 02/10/2025 10:29 AM CDT Plan of Treatment Upcoming Encounters Date Type Department Care Team (Late st Contact Info) Description 02/09/2026 8:30 AM CDT Lab [facility] [address] [phone] Lab, [facility] 02/09/2026 8:45 AM CDT Office Visit [facility] [address] [phone] Rusty Mayen MD [address] [place] [phone] Health Maintenance Due Date Last Done Comments Hepatitis C Virus (HCV) Screening 1957 Zoster Immunization (1 of 2) 1976 Cologuard 2002 Colonoscopy 2002 Colorectal Cancer Screening 2002 Immunochemical Fecal Occult Blood 2002 PSA Discussion 2012 Medicare Initial AWV [id number] 01/01/2022 AAA Screening Ultrasound 2022 Influenza Immunization (#1) 2025 SARS-COV-2 Immunization ( season) 2025 05/02/2021, 09/23/2020, 08/26/2020 Respiratory Syncytial Virus (RSV) Immunization (Adult) (1 - 1-dose 75+ series) 2032 DTaP/Tdap/Td Immunization Discontinued 08/05/2024 Pneumococcal Immunization (5 0+ years) Completed 08/05/2024 Pneumococcal Immunization Combined Discontinued 08/05/2024 TdaP Immunization Completed 08/05/2024 Hepatitis B Immunization Aged Out No longer eligible based on patient's age to complete this topic Human Papillomavirus (HPV) Immunization Aged Out No longer eligible based on patient's age to complete this topic Meningococcal Immunization (ACWY) Aged Out No longer eligible based on patient's age to complete this topic Rotavirus Immunization Aged Out No lo nger eligible based on patient's age to complete this topic Procedures Procedure Name Priority Date/Time Associated Diagnosis Comments CBC WITH AUTO DIFF OH Routine 02/10/2025 10:20 AM CDT CMP (COMPREHENSIVE METABOLIC PANEL) Routine 02/10/2025 10:20 AM CDT Malignant neoplasm of lower third of esophagus (HCC) LACTATE DEHYDROGENASE (LD) Routine 02/10/2025 10:20 AM CDT Malignant neoplasm of lower third of esophagus (HCC) from Last 3 Months Results * (ABNORMAL) CBC WITH AUTO DIFF OH (02/10/2025 10:20 AM CDT) WBC 4.6 4.0 - 10.0 10*3/uL [facility] HGB 15.8 13.7 - 17.5 g/dL [facility] HCT 46.6 40.1 - 51.0 % [facility] PLT 163 163 - 369 10*3/uL [facility] MPV 9.5 9.4 - 12.4 fL [facility] RBC 4.64 4.63 - 6.08 10*6/uL [facility] MCV 100(H) 79 - 95 fL [facility] MCH 34.1(H) 25.6 - 32.2 pg [facility] MCHC 33.9 32.2 - 36.5 g/dL [facility] RDW 13.2 11.6 - 14.4 % [facility] Neutrophils % 66.7(H) 36.0 - 66.0 % [facility] Lymphocytes % 21.7 19.0 - 40.0 % [facility] Monocytes % 9.2 4.1 - 12.1 % [facility] Eosinophils % 1.3 0.0 - 3.5 % [facility] Basophils % 0.9 0.0 - 1.0 % [facility] Absolute Neutrophils 3.0 1.4 - 6.6 10*3/uL [facility] Absolute Lymphocytes 1.0 0.8 - 4.0 10*3/uL [facility] Absolute Monocytes 0.4 0.2 - 1.2 10*3/uL [facility] Absolute Eosinophils 0.1 0.0 - 0.4 10*3/uL [facility] Absolute Basophils 0.0 0.0 - 0.1 10*3/uL [facility] 02/10/2025 10:2 0 AM CDT Aisha Mejia DIRECTOR OF INSTITUTIONAL SALES, MELTER SUPERVISOR OXYGEN FURNACE LAB SEND OUTS Final Result [facility] [place] [address], [place] [phone] * (ABNORMAL) LACTATE DEHYDROGENASE (LD) (02/10/2025 10:20 AM CDT) LDH 102(L) 140 - 271 U/L [facility] Blood 02/10/2025 10:2 0 AM CDT Narrative [facility] - 02/10/2025 11:09 AM CDT Release to patient->Immediate Aisha Mejia DIRECTOR OF INSTITUTIONAL SALES, MELTER SUPERVISOR OXYGEN FURNACE CHEMISTRY ORDERABLES Final Result [facility] [address] [place] [phone], * (ABNORMAL) CMP (COMPREHENSIVE METABOLIC PANEL) (02/10/2025 10:20 AM CDT) Glucose 104 70 - 105 mg/dL [facility] Blood Urea Nitrogen 10 7 - 25 mg/dL [facility] Creatinine 1.2 0.7 - 1.3 mg/dL [facility] Sodium 138 136 - 145 mEq/L [facility] Potassium 4.1 3.5 - 5.1 mEq/L [facility] Chloride 101 98 - 107 mEq/L [facility] Bicarbonate 27 21 - 31 mEq/L [facility] Total Bilirubin 1.4(H) 0.3 - 1.0 mg/dL [facility] Alk. Phosphatase 71 34 - 104 U/L [facility] Aspartate Aminotransferase 25 13 - 39 U/L [facility] Alanine Aminotransferase 15 7 - 52 U/L [facility] Total Protein 7.0 6.4 - 8.9 g/dL [facility] Albumin 3.9 3.5 - 5.7 g/dL [facility] Calcium 9.3 8.6 - 10.3 mg/dL [facility] Anion Gap 14.1 7.0 - 15.0 mEq/L [facility] Globulin 3.1 2.0 - 3.5 g/dL [facility] EGFR 66 >60 ml/min/1. 73m2 [facility] Comment: This eGFR is calculated using 2020 CKD-EPI Creatinine equation without race modifier based on the NKF-ASN task force recommendations Equation: tDIN=396*min(SCr/k,1)a*max(SCr/k,1)-1.200*0.9938Age*1.012 (if female), where SCr is serum creatinine, k is 0.7 for females and 0.9 for males, and a is -0.241 for females and -0.302 for males Blood 02/10/2025 10:2 0 AM CDT Narrative [facility] - 02/10/2025 11:09 AM CDT Release to patient->Immediate IS THE PATIENT REQUIRED TO BE FASTING FOR 8 HOURS?->No Aisha Mejia APRN, MELTER SUPERVISOR OXYGEN FURNACE CHEMISTRY ORDERABLES Final Result Performing Organization Address City/State/[facility] Co de Phone Number [facility]ON[facility] [address] [place] [address], from Last 3 Months Insurance MEDICARE C [employer] Care Teams Coremaker Floor Relationship Specialty Start Date End Date Chandler Diego MD [address] [place] [address] PCP - General Internal Medicine 06/13/22 Rusty Mayen MD Consulting Physician Oncology 08/27/18 Sony Collazo MD [address] [place] [id number] Consulting Physician General Surgery 02/16/19
--- OUTSIDE RECORDS SUMMARY | 2025-04-02 00:22 | XMS_ITS | Clinical Summary ---
Author Organization [facility] Address [address] [place] [address] Care Team Providers Care Make Up Operator Name Role Phone Chandler Diego MD Primary Care Provider [phone] Allergies No known active allergies Medications omeprazole 20 MG capsule Take 20 mg by mouth daily. 5 09/04/2018 Active ondansetron 4 MG tablet Take 4 mg by mouth 3 (three) times daily as needed for Nausea or Vomiting. 3 08/28/2018 Active prochlorperazine 10 MG tablet Take 10 mg by mouth every 6 (six) hours as needed. 3 08/28/2018 Active sucralfate 1 G tablet Take 1 g by mouth 3 (three) times daily with meals. 2 08/21/2018 Active lidocaine viscous 2 % solution Take 5 mLs by mouth 3 (three) times a day. 3 08/28/2018 Active Social History Tobacco Use Types Packs/Day Years Used Date Smoking Tobacco: Never Smokeless Tobacco: Never Alcohol Use Standard Drinks/Week Comments No 0 (1 standard drink = 0.6 oz pur e alcohol) AUDIT-C Answer Date Recorded Frequency of Alcohol Consumption Never 09/10/2018 Average Number of Drinks Not on file 019 Frequency of Binge Drinking Not on file 09/01 Sex and Gender Information Value Date Recorded Sex Assigned at Not on file Legal Sex Male 8:12 AM CDT Gender Identity Not on file Sexual Orientation Not on file Last Filed Vital Signs Vital Sign Reading Time Taken Comments Blood Pressure 130/70 09/10/2018 1:00 PM CDT Pulse 68 09/10/2018 1:00 PM CDT Temperature 36.4 C (97.6 F) 09/10/2018 8:26 AM CDT Respiratory Rate 25 09/10/2018 1:00 PM CDT Oxygen Saturation 98% 09/10/2018 1:00 PM CDT Inhaled Oxygen Concentration - - Weight 108.9 kg (240 lb 1.3 oz) 019 8:26 AM CDT Height 188 cm (6' 2) 09/10/2018 8:26 AM CDT Body Mass Index 30.82 09/10/2018 8:26 AM CDT Plan of Treatment Health Maintenance Due Date Last Done Comments Colorectal Cancer Screening Colonoscopy (10 Years) 1957 Hepatitis C 1975 DTaP, Tdap and Td Vaccines ( 1 - Tdap) 1976 Pneumococcal Vaccine: 50+ Ye ars (1 of 1 - PCV) 2007 Zoster Vaccines (1 of 2) 2007 COVID-19 Vaccine (1 - 2024-2 6 season) 2025 Influenza Adult (#1) 2025 RSV Immunization or 60+ Years (1 - 1-dose 75+ series) 2032 Hepatitis A Vaccines Aged Out No long er eligible based on patient's age to complete this topic Meningococcal B Vaccine Aged Out No l onger eligible based on patient's age to complete this topic Meningococcal Vaccine Aged Out No hernando maureen eligible based on patient's age to complete this topic RSV Immunizations Under 20 Months Aged Out No longer eligible based on patient's age to complete this topic Care Teams Make Up Operator Relationship Specialty Start Date End Date Chandler Diego MD [address] [place] [id number] PCP - General INTERNAL MEDICINE 05/22/19
--- OUTSIDE RECORDS SUMMARY | 2025-04-02 00:22 | XMS_ITS | Clinical Summary ---
Author Organization [facility] Address [address] [place] [address] Care Team Providers Care Auto Suspension And Steering Mechanic Name Role Phone Chandler Diego MD Primary Care Provider [phone] Source Comments [facility],non-owned Affiliates and Associated Physician Practices is amultiple site organization consisting of ambulatory clinics and hospital sitesin [place], [place], [place] and [place]. This disclosure is being madepursuant to the Care Everywhere program and may not contain all information available regarding this patient. Last updated 18.[facility] Allergies No known active allergies Medications * Be aware that medications may not be up to date on this document. Alwaysverify current medications with the patient. acetaminophen (TYLENOL) 325 MG tablet Take 2 tablets by mouth every 6 hours as needed Maximum allowable Acetaminophen amount = 4 Grams (4000 mg) / 24 hours. 30 tablet 12/31/19 19 Active ibuprofen (MOTRIN) 600 MG tablet Take 1 tablet by mouth every 8 hours as needed for Pain 30 tablet 12/31/19 19 Active metoprolol tartrate (LOPRESSOR) 25 MG tablet Take 0.25 tablets by mouth 2 times daily 60 tablet 12/31/19 19 Active Additional Information Patient not taking.Reported on 04/11/2020 omeprazole (PRILOSEC) 20 MG capsuleIndicat ions:Gastroeso phageal Reflux Disease Take 1 capsule by mouth 2 times daily Reasons: Gastroesophageal Reflux Disease 60 capsule 1 01/03/20 19 Active Active Problems Problem Noted Date Diagnosed Date Loss of weight 02/01/2020 Regurgitation of food 02/01/2020 Esophageal dysphagia 02/01/2020 Slow transit constipation 02/01/2020 Tubulovillous adenoma of colon 02/01/2020 High risk medication use 02/01/2020 Malignant neoplasm of lower third of esophagus 0 12/23/2018 Resolved Problems Problem Noted Date Diagnosed Date Resolved Date Acute post-operative pain 12/23/2018 Family History Medical History Relation Name Comments Alzheimer's Disease Father Alzheimer's Disease Mother Relation Name Status Comments Father Mother Social History Tobacco Use Types Packs/Day Years Used Date Smoking Tobacco: Former Cigarettes 2 20 1 06/1975 - 04/1996 Smokeless Tobacco: Never Tobacco Cessation:Counseling Given: Yes Alcohol Use Standard Drinks/Week Comments Yes 0 (1 standard drink = 0.6 oz pur e alcohol) rare Sex and Gender Information Value Date Recorded Sex Assigned at Not on file Legal Sex Male 7:33 AM STEEL MELTER Gender Identity Not on file Sexual Orientation Not on file Last Filed Vital Signs Vital Sign Reading Time Taken Comments Blood Pressure 118/72 04/19/2020 9:57 AM STEEL MELTER Pulse 61 04/11/2020 10:27 AM STEEL MELTER Temperature 37.1 C (98.7 F) 04/11/2020 10:27 AM STEEL MELTER Respiratory Rate 18 04/11/2020 10:27 AM STEEL MELTER Oxygen Saturation 99% 04/11/2020 10:27 AM STEEL MELTER Inhaled Oxygen Concentration 100% 02/20/2019 9 :43 AM CDT Weight 90.7 kg (200 lb) 04/19/2020 9:57 AM STEEL MELTER Height 185.4 cm (6' 1) 04/19/2020 9:57 AM STEEL MELTER Body Mass Index 26.39 04/19/2020 9:57 AM STEEL MELTER Plan of Treatment Health Maintenance Due Date Last Done Comments COLOGUARD (AGES 45-75) - COLON CA SCREENING 1957 COLON MONITORING 1957 COLONOSCOPY - COLON CA SCREENING 1957 CT COLONOGRAPHY - COLON CA SCREENING 1957 Colorectal Cancer Screening 1957 FIT - COLON CA SCREENING 1957 FLEX SIG - COLON CA SCREENING 1957 LIPID TESTING 1957 HEPATITIS C SCREENING 03/10/1975 DTAP/TDAP/TD VACCINES (1 - Tdap) 1976 PNEUMOCOCCAL VACCINE 50+ (1 of 1 - PCV) 2007 ZOSTER VACCINE (1 of 2) 2007 Respiratory Syncytial Virus (RSV) Vaccine Pt: or over 60 yrs (1 - Risk 60-74 years 1-dose series) 2017 SCREENING FOR DIABETES 12/30/2021 9, 12/29/2018, 12/27/2018, Additional history exists AAA SCREENING 2022 DEPRESSION SCREENING 06/03/2024 COVID-19 VACCINE ( season) 2025 INFLUENZA VACCINE (#1) 2025 HEPATITIS B VACCINE Aged Out No longe r eligible based on patient's age to complete this topic HIB VACCINE Aged Out No longer eligi ble based on patient's age to complete this topic HPV VACCINE Aged Out No longer eligi ble based on patient's age to complete this topic MENINGOCOCCAL (Group B) VACCINE SHARED DECISION-MAKING Aged Out No longer eligible based on patient's age to complete this topic MENINGOCOCCAL GROUPS A/C/Y/W VACCINE Aged Out No longer eligible based on patient's age to complete this topic Goals Goal Patient Goal Type Associated Problems Recent Progress Patient-Stated? Author Medication Management General On track( 020 10:31 AM STEEL MELTER) No Radha Noriega, RN Note: Expected end date: ongoing Interventions: Take all medications as prescribed Let your doctor know right away about any changes in your medications Make sure to request a refill of your medication at least one week prior to your last dose Procedures Procedure Name Priority Date/Time Associated Diagnosis Comments BASIC METABOLIC PANEL (CALCIUM TOTAL) AM Draw 12/30/2018 5:04 AM CDT Malignant neoplasm of lower third of esophagus from Last 3 Months or Most Recently Relevant to Health Maintenance Results * (ABNORMAL) BASIC METABOLIC PANEL (CALCIUM TOTAL) (12/30/2018 5:04 AM CDT) BUN 24 7 - 26 mg/dL 12/30/2018 5:52 AM CDT [facility] Creatinine 1.0 0.6 - 1.2 mg/dL 12/30/2018 5:52 AM [facility] Sodium 141 136 - 145 mmol/L 12/30/2018 5:52 AM [facility] Potassium 3.9 3.5 - 4.5 mmol/L 12/30/2018 5:52 AM [facility] Chloride 107 98 - 107 mmol/L 12/30/2018 5:52 AM [facility] CO2 22 22 - 29 mmol/L 12/30/2018 5:52 AM [facility] Glucose 105 70 - 115 mg/dL 12/30/2018 5:52 AM [facility] Calcium 8.7 8.4 - 10.2 mg/dL 12/30/2018 5:52 AM [facility] Anion Gap 16 8 - 18 12/30/2018 5:52 AM [facility] BUN/Creatinine Ratio 24(H) 7 - 23 12/30/2018 5:52 AM [facility] Osmolality Calculated 296 270 - 300 mOsm/kg 12/30/2018 5:52 AM [facility] eGFR >60 >60 mL/min/1.7 3 m2 12/30/2018 5:52 AM [facility] Blood BLOOD SPECIMEN / Unknown Lab Venipuncture / Unknown 12/30/2018 5:04 AM CDT 12/30/2018 5:18 AM T Jojo Beltran MD LAB - CHEMISTRY ORDERABL ES Final Result [facility] [address] [place] [address] from Last 3 Months or Most Recently Relevant to Health Maintenance Insurance CLAUDIA ANTHEM Advance Directives * Full Code (Latest Code Status on File) Date Activated Date Inactivated Comments 12/23/2018 5:51 PM 12/30/2018 7:32 PM * Full Code Date Activated Date Inactivated Comments 12/23/2018 3:41 PM 12/23/2018 5:51 PM Care Teams Auto Suspension And Steering Mechanic Relationship Specialty Start Date End Date Chandler Diego MD [address] [place] [address] PCP - General Internal Medicine 10/13/18
[2025-04-02 09:30] VITALS: BP 148/72; PULSE 64; RESP 20; TEMP 36.4; O2SAT 100
--- NOTE | 2025-04-02 09:35 | WPDANESEPPF ---
Anes - Initial Pre Proc Eval Procedure: Operation Date: 04/02/25 10:45 Proposed Procedures p Esophagogastroduodenoscopy - Dav Terrazas MD Date/Time: 04/02/25 09:35 Surgeon: Dav Terrazas MD Pre Op Diagnosis: Dysphagia, unspecified Patient Data Age: 70 Gender: M Height: 1.83 m Weight: 102.7 kg Last Vital Signs Temp 36.4 C 04/02/25 09:30 Pulse 64 04/02/25 09:30 Resp 20 04/02/25 09:30 BP 148/72 H 04/02/25 09:30 Pulse Ox 100 04/02/25 09:30 O2 Del Method Room Air 04/02/25 09:30 Allergies Allergy/AdvReac Type Severity Reaction Status Date / Time No Known Allergies Allergy Verified 04/02/25 09:29 Home Medications ?Medication ?Instructions ?Recorded ?Confirmed ?Type omeprazole 20 mg capsule,delayed 20 mg PO BID 05/30/19 04/02/25 History release sucralfate 1 gram tablet (Carafate) 1 g PO QID 15 days #60 tabs 10/24/21 03/24/25 Rx oxycodone-acetaminophen 5 mg-325 1 tablet PO Q6H PRN pain #20 tabs 02/01/22 03/24/25 Rx mg tablet (Percocet) Patient hx anesthesia problems: none Family hx anesthesia problems: none Results Review: All pre-operative results and documents have been reviewed as part of the pre-operative evaluation. [facility] Past Medical History Medical History DVT (deep venous thrombosis) Afib Esophageal cancer Surgical History Surgical History H/O esophagectomy Family History Family History Mother Heart disease Social History Social History Smoking status: Former smoker Tobacco type: cigarettes Second hand tobacco smoke exposure: No Smoking end date: 04/08/96 Alcohol intake: current Drinks per week: 14 Substance use type: does not use Living arrangements: with family Gender identity (if verbalized by the patient): Male Spiritual care concerns: No Agree to blood products: Yes Anes - Eval Final PreProcedure Day of Procedure 04/02/25 09:35 Patient weight: obese Heart: regular rate and rhythm Lungs: clear to auscultation Airway: Mallampati scale class 1 Neurological: alert and oriented Last oral intake: >/= 8 hours ASA classification: III Emergent: no Anesthetic plan: proceed Anesthesia type and monitoring: general GIVS and standard monitoring Results Review: All pre-operative results and documents have been reviewed as part of the pre-operative evaluation. Informed Consent: The patient's anesthetic plan and its attendant risks and benefits were discussed with the patient/family/POA. Questions were solicited and answers provided to the satisfaction of the patient/family/POA.
[2025-04-02] MEDS: LACTATED RINGERS 1,000 ML 150 ML IV CONT (10:07)
--- NOTE | 2025-04-02 10:14 | P.HP_ITS ---
History of Present Illness History of Present Illness Consent: Risks, benefits, and alternatives have been discussed and questions answered. Patient agrees to proceed with procedure. Chief complaint: Dysphagia, unspecified Narrative: Anil Samaniego is a 70 year old male with esophageal cancer 2019 s/p esophagectomy with XRT and chemo now on remission, last egd 2-3 years ago, he has dysphagia and in the past required dilation after surgery. Review of Systems Review of Systems: All systems reviewed & are unremarkable except as noted in HPI and below PMFSH Past Medical History Medical History (Updated 04/02/25 @ 10:15 by Dav Terrazas MD) Dysphagia History of esophageal cancer DVT (deep venous thrombosis) Afib Esophageal cancer Surgical History Surgical History H/O esophagectomy Family History Family History Mother Heart disease Social History Social History Smoking status: Former smoker Tobacco type: cigarettes Second hand tobacco smoke exposure: No Smoking end date: 04/08/96 Alcohol intake: current Drinks per week: 14 Substance use type: does not use Living arrangements: with family Gender identity (if verbalized by the patient): Male Spiritual care concerns: No Agree to blood products: Yes Meds Home Medications and Allergies Home Medications ?Medication ?Instructions ?Recorded ?Confirmed ?Type omeprazole 20 mg capsule,delayed 20 mg PO BID 05/30/19 04/02/25 History release sucralfate 1 gram tablet (Carafate) 1 g PO QID 15 days #60 tabs 10/24/21 03/24/25 Rx oxycodone-acetaminophen 5 mg-325 1 tablet PO Q6H PRN p ain #20 tabs 02/01/22 03/24/25 Rx mg tablet (Percocet) Allergies Allergy/AdvReac Type Severity Reaction Status Date / Time No Known Allergies Allergy Verified 04/02/25 09:29 Vital Signs Vital Signs - 24 hr 04/02/25 09:30 Temperature 97.6 F Pulse Rate 64 Respiratory Rate 20 Blood Pressure 148/72 H Pulse Oximetry 100 Oxygen Delivery Room Air Exam Const: General: comfortable and no acute distress HENMT: Face/Nose/Sinus: Normal nares present Eyes: General: appearance normal, both eyes and all related structures Neck: Neck: no JVD Resp: Auscultation: clear to auscultation bilaterally Cardio: Rate: regular rate Rhythm: regular rhythm GI: Inspection: non-distended GI Palp: Yes Soft to palpation Skin: General skin exam: normal color Extrem: General: normal to inspection Psych: Mental Status: mental status grossly normal Assessment and Plan Assessment and plan (1) History of esophageal cancer: Code(s): Z85.01 - Personal history of malignant neoplasm of esophagus Status: Acute (2) Dysphagia: Code(s): R13.10 - Dysphagia, unspecified Status: Acute Assessment and Plan: egd
[2025-04-02 10:35] VITALS: BP 111/71; PULSE 73; RESP 26; O2SAT 98
[2025-04-02 10:45] VITALS: BP 119/83; PULSE 78; RESP 28; O2SAT 100
[2025-04-02 10:55] VITALS: BP 131/75; PULSE 68; RESP 17; O2SAT 99
== END 2025-04-02 11:04 | disposition home or self-care (01) ==
PROVIDERS: PCP Internal Medicine; Visit Provider Internal Medicine Gastroenterology
PROC: 0DJ08ZZ Inspection of Upper Intestinal Tract, Via Natural or Artificial Opening Endoscopic (ICD-10-PCS; CPT 43249; principal; 2025-04-02 10:45)
DX: K22.2 Esophageal obstruction (principal); I48.91 Unspecified atrial fibrillation; E66.9 Obesity, unspecified; Z68.30 Body mass index [BMI] 30.0-30.9, adult; Z79.891 Long term (current) use of opiate analgesic; Z98.890 Other specified postprocedural states; Z92.3 Personal history of irradiation; Z92.21 Personal history of antineoplastic chemotherapy; Z85.01 Personal history of malignant neoplasm of esophagus; Z86.718 Personal history of other venous thrombosis and embolism; Z82.49 Family history of ischemic heart disease and other diseases of the circulatory system
CPT/HCPCS: 43249; C1726; J2003; J2704; J7120